=== PATIENT | female | born 1985 | race Caucasian/White ===

== ENCOUNTER 2016-06-20 13:39 | Emergency (ER) | payer OTHER ==
--- NOTE | ~2016-06-20 | CR141 ---
[facility] A Service of [facility] & [facility] RADIOLOGY TEXT RESULTS PATIENT: ANNETTA MURCIA LOCATION: SED : 89 UNIT #: [id number] AGE: [address]: Marie Cormier APRN SEX: F ORDER DR: [id number] [place] [id number] E MR#: [id number] Acc #: [id number] NAME: ANNETTA MURCIA : 1985 SEX: F STUDY DATE/TIME: 06/20/2016 13:44 UNIT: SED ROOM: STUDY DESCRIPTION: CR Hand Min 3 Views Lt Attending Physician: Marie Cormier A.P.R.N. Referring Physician: Marie Cormier A.P.R.N. Ordering Physician: Marie Cormier A.P.R.N. Primary Care Physician: Primary Care Physician No MEDICAL IMAGING REPORT This report is preliminary unless electronic signature is present. EXAM Left hand 06/20/2016 HISTORY 31-year-old female with left thumb pain status post fall last night. COMPARISON None. FINDINGS 3 views of the left hand demonstrate a minimally displaced intraarticular avulsion fracture involving the ulnar base of the first proximal phalanx. No dislocation. No other acute fractures are seen. IMPRESSION Minimally displaced intraarticular avulsion fracture involving the ulnar base of the first proximal phalanx. No dislocation. Dictated by... Rosendo Manjarrez M.D. THIS IS AN ELECTRONICALLY VERIFIED REPORT Rosendo Manjarrez M.D. at 06/21/2016 8:46 AM PADMINI/augie TD: 06/21/2016 00:20 JOB #: [id number] MEDICAL IMAGING REPORT Page 1 of 1
[~2016-06-20 13:39] MED LIST: BACTROBAN15 GM TOP; NO MEDICATIONS
== END 2016-06-20 14:57 | disposition home or self-care (01) ==
LOC: SED 13:39
DX: S62.512A Displaced fracture of proximal phalanx of left thumb, initial encounter for closed fracture (principal); F17.210 Nicotine dependence, cigarettes, uncomplicated; W18.09XA Striking against other object with subsequent fall, initial encounter; Y92.009 Unspecified place in unspecified non-institutional (private) residence as the place of occurrence of the external cause
CPT/HCPCS: 29125; 73130; 99283

== ENCOUNTER → 2016-10-01 | Outpatient (CLI) | payer OTHER ==
--- NOTE | ~2016-10-01 | CR242 ---
[facility] A Service [facility] RADIOLOGY TEXT RESULTS PATIENT: ANNETTA MURCIA LOCATION: [facility] : 87 UNIT #: [id number] AGE: [address]: Vickie Asher SITE SUPERVISING TECHNICAL OPERATOR SEX: F ORDER DR: [id number] [address] [address] [id number] O MR#: [id number] Acc #: [id number] NAME: ANNETTA MURCIA : 1985 SEX: F STUDY DATE/TIME: 10/01/2016 10:09 UNIT: [facility] ROOM: STUDY DESCRIPTION: CR Thoracic Spine 2 Views Attending Physician: Vickie Asher A.P.R.N. Referring Physician: Vickie Asher A.P.R.N. Ordering Physician: Vickie Asher A.P.R.N. Primary Care Physician: Vickie Asher A.P.R.N. MEDICAL IMAGING REPORT This report is preliminary unless electronic signature is present. EXAM Thoracic spine series HISTORY Mid and lower back pain for the past several years. TECHNIQUE Three views of the thoracic spine were obtained. FINDINGS There is mild loss of height anteriorly at T12 with small osteophytes at T11-12 and T12-L1. The mid thoracic and upper thoracic discs are normal. There is a very subtle mid thoracic dextroscoliosis of less than 10 degrees. Pedicles are intact at each level and no paraspinous masses are seen. IMPRESSION Minimal mid-thoracic dextroscoliosis. Probable old compression fracture of T12 with moderate degenerative changes at T11-12 and T12-L1 discs. No acute bony abnormalities are seen. Dictated by... Kareem Canales M.D. THIS IS AN ELECTRONICALLY VERIFIED REPORT Kareem Canales M.D. at 10/04/2016 11:43 AM COLIN/charlie TD: 10/01/2016 15:08 JOB #: [id number] MEDICAL IMAGING REPORT [facility] A Service [facility] RADIOLOGY TEXT RESULTS PATIENT: ANNETTA MURCIA LOCATION: [facility] : 87 UNIT #: [id number] AGE: [address]: Vickie Asher SEX: F ORDER DR: Page 1 of 1
--- NOTE | ~2016-10-01 | CR181 ---
[facility] A Service of [facility] RADIOLOGY TEXT RESULTS PATIENT: ANNETTA MURCIA LOCATION: [facility] : 87 UNIT #: [id number] AGE: [address]: Vickie Asher UI UX WEB DEVELOPER SEX: F ORDER DR: [id number] [address] [address] [id number] O MR#: [id number] Acc #: [id number] NAME: ANNETTA MURCIA : 1985 SEX: F STUDY DATE/TIME: 10/01/2016 10:09 UNIT: [facility] ROOM: STUDY DESCRIPTION: CR Lumbar Spine 2 or 3 Views Attending Physician: Vickie Asher A.P.R.N. Referring Physician: Vickie Asher A.P.R.N. Ordering Physician: Vickie Asher A.P.R.N. Primary Care Physician: Vickie Asher A.P.R.N. MEDICAL IMAGING REPORT This report is preliminary unless electronic signature is present. EXAM Lumbar spine series HISTORY Back pain radiating to the right leg for the past several years. TECHNIQUE 3 views of the lumbar spine were obtained. FINDINGS There is loss of height anteriorly at T12 and L1 suggesting previous mild wedge compression fractures. This could also be developmental. There are moderate degenerative changes noted at T11-12, T12-L1, and L1-L2 with disc space narrowing and anterior osteophyte formation. The lower lumbar discs are normal. No pars defects or fractures are seen. Right upper quadrant calcifications are seen consistent with gallstones. IMPRESSION 1. Anterior loss of height at T12 and L1 with moderate degenerative changes across the thoracolumbar junction in the discs. 2. Wyl-[id number] lumbar discs are normal. 3. Cholelithiasis. Dictated by... Kareem Canales M.D. THIS IS AN ELECTRONICALLY VERIFIED REPORT Kareem Canales M.D. at 10/04/2016 11:43 AM COLIN/adrian TD: 10/01/2016 15:05 [facility] A Service of [facility] RADIOLOGY TEXT RESULTS PATIENT: ANNETTA MURCIA LOCATION: [facility] : 89 UNIT #: [id number] AGE: [address]: Vickie Asher SEX: F ORDER DR: DORIE #: [id number] MEDICAL IMAGING REPORT Page 1 of 1
== END | disposition home or self-care (01) ==
LOC: SRAD 09:54
DX: M51.15 Intervertebral disc disorders with radiculopathy, thoracolumbar region (principal); M51.14 Intervertebral disc disorders with radiculopathy, thoracic region; K80.20 Calculus of gallbladder without cholecystitis without obstruction
CPT/HCPCS: 72070; 72100

== ENCOUNTER 2016-11-15 10:48 | Emergency (ER) | payer OTHER ==
[~2016-11-15] VITALS: Ht 165.1 cm; Wt 96.2 kg
== END 2016-11-15 12:33 | disposition home or self-care (01) ==
LOC: SED 10:48
DX: J20.9 Acute bronchitis, unspecified (principal); J06.9 Acute upper respiratory infection, unspecified; F17.210 Nicotine dependence, cigarettes, uncomplicated
CPT/HCPCS: 99283